=== PATIENT | female | born 1995 | race Caucasian/White ===

== ENCOUNTER 2020-01-22 15:25 | Emergency (ER) | payer SELFPAY ==
[2020-01-22] VITALS (7 sets, daily range): BP systolic 105–148; BP diastolic 65–94; PULSE 61–110; RESP 16–18; TEMP 36.4; O2SAT 96–98; BMI 36.6
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
--- NOTE | 2020-01-22 17:18 | CTR_ITS ---
PROCEDURE INFORMATION: Exam: CT Abdomen And Pelvis Without Contrast Exam date and time: 01/22/2020 5:53 PM Age: 24 years old Clinical indication: Abdominal pain; Additional info: Flank pain TECHNIQUE: Imaging protocol: Computed tomography of the abdomen and pelvis without contrast. Radiation optimization: All CT scans at this facility use at least one of these dose optimization techniques: automated exposure control; mA and/or kV adjustment per patient size (includes targeted exams where dose is matched to clinical indication); or iterative reconstruction. COMPARISON: No relevant prior studies available. RADIATION DOSE METRICS: Total DLP (mGy-cm): 1742.07 FINDINGS: Liver: Normal. No mass. Gallbladder and bile ducts: Normal. No calcified stones. No ductal dilation. Pancreas: Normal. No ductal dilation. Spleen: Normal. No splenomegaly. Adrenal glands: Normal. No mass. Kidneys and ureters: Normal. No hydronephrosis. Stomach and bowel: Unremarkable. No obstruction. No mucosal thickening. Appendix: The appendix is normal. Intraperitoneal space: Unremarkable. No free air. No significant fluid collection. Vasculature: Unremarkable. No abdominal aortic aneurysm. Lymph nodes: Unremarkable. No enlarged lymph nodes. Urinary bladder: Unremarkable as visualized. Reproductive: Unremarkable as visualized. Bones/joints: Unremarkable. No acute fracture. Soft tissues: Unremarkable. CT/CT kidney stone [id number] IMPRESSION: No acute findings. Radiation Dose CTDIVOL = (mGy): DLP = 1742.07 (mGy-cm)
[2020-01-22 17:24] LABS: Basophils # 0.1 10^3/uL (0.0-0.1); Eosinophils # 0.5 10^3/uL (0.0-0.8); Eosinophils % 4.3 %; Hematocrit 44.2 % (37.0-47.0); Hemoglobin 14.6 g/dL (11.5-15.3); Lymphocytes % 24.1 %; Mean Corpuscular Volume 90.8 fL (81-99); Mean Platelet Volume 10.1 fL (7.4-10.4); Monocytes # 0.7 10^3/uL (0.2-0.9); Monocytes % 5.3 %; Nucleated Red Blood Cells % 0 %; Platelet Count 296 10^3/cmm (130-400); Red Blood Count 4.87 10^6/uL (4.1-5.3); Red Cell Distribution Width 12.4 % (12.1-15.1); White Blood Count 12.3 10^3/uL (4.0-10.0)
[2020-01-22 17:33] LABS: HCG, Serum Qual Negative (Negative)
[2020-01-22] MEDS: ondansetron 2 mg/ML SDV 2 mL 4 MG IVP (17:34)
[2020-01-22] MEDS: sodium chloride 0.9% 1,000 ML 999 ML IV (17:34)
[2020-01-22] MEDS: morphine 4 mg/mL SDV 1 mL IVP (17:34)
[2020-01-22 17:43] LABS: Lipase 67 U/L (13-60)
[2020-01-22 18:49] LABS: Alanine Aminotransferase 43 U/L (0-33); Albumin Level 4.3 g/dL (3.5-5.2); Alkaline Phosphatase 65 IU/L (35-105); Blood Urea Nitrogen 12 mg/dL (6-20); Calcium 9.7 mg/dL (8.5-10.5); Carbon Dioxide 23 mmol/L (22-29); Chloride 104 mmol/L (98-107); Globulin 2.5 g/dL (1.3-4.6); Glomerular Filtration Rate 122.8 mL/min (90-130); Glucose 107 mg/dL (65-115); Osmolality Calculated 284 mOsm/kg (285-295); Sodium 137 mmol/L (136-145); Total Bilirubin 0.2 mg/dL (0.15-1.2); Total Protein 6.8 g/dL (6.6-8.7)
[2020-01-22 19:09] LABS: Anion Gap 14.2 (5-19); Aspartate Amino Transferase 45 U/L (0-32); Potassium 4.2 mmol/L (3.5-5.1)
[2020-01-22 19:41] LABS: Bilirubin Urine Neg (Negative); Blood Urine 3+ (Negative); Glucose Urine UA Norm (Normal); Ketones Urine Negative (Negative); Nitrate Urine Negative (Negative); Protein Urine Neg (Negative); Urine Appearance Cloudy (CLEAR); Urine Color Yellow (Yellow); pH Urine 5 (5-7)
[2020-01-22 19:42] LABS: Add Urine Microscopic? YES; Leukocyte Esterase Urine Trace (Negative); Urobilinogen Urine Norm (Negative)
[2020-01-22 19:56] LABS: Add Urine Culture? Yes; Bacteria Urine 3+ /hpf; RBC Urine TOO NUMEROUS TO CNT /hpf (0-2)
[2020-01-22] MEDS: phenazopyridine 100 mg Tablet 200 MG PO (20:48)
[2020-01-22] MEDS: cefTRIAXone 1,000 MG in sodium chloride 0.9% (plus) 50 ML 100 MG IV (20:48)
== END 2020-01-22 21:17 | disposition home or self-care (01) ==
PROVIDERS: Family Medicine; Emergency Provider Emergency Medicine; PCP Family Medicine
DX: N30.01 Acute cystitis with hematuria (principal); R74.8 Abnormal levels of other serum enzymes; F17.210 Nicotine dependence, cigarettes, uncomplicated
CPT/HCPCS: 12345; 74176; 80053; 81001; 83690; 84703; 85025; 87077; 87086; 87186; 96365; 96375; 96376; 99282; 99283; J0696; J2270; J2405; J7030

== ENCOUNTER 2021-02-25 15:53 | Emergency (ER) | payer SELFPAY ==
[2021-02-25 16:05] VITALS: BP 142/85; PULSE 89; RESP 16; TEMP 36.7; O2SAT 98
--- NOTE | 2021-02-25 16:17 | ED_ITS ---
HPI - Skin/Abscess/Foreign Bdy General: Chief complaint: Skin/Abscess/Foreign Body Stated complaint: NEW TATTOO, RED, SWOLLEN, IRRITATED/WORSE EVERYDAY Time Seen by Provider: 02/25/21 16:12 History of Present Illness: HPI narrative: Patient had rather extensive tattoo done to her left forearm approximately week ago. And now she is having pain and having some bumps that are appearing along the tattoo especially where there is some red ink. She had similar thanks and then by the same manga artist on the other arm had no problems previously. Patient has been applying petroleum jelly to keep tattoo moist MD complaint: rash and other (Pain to tattoo) Onset (ago): hour(s) Tetanus up to date: yes Location: LUE Severity: mild Severity scale (1-10): 2 Quality: burning Associated symptoms: Reports no associated symptoms; Deny chills, fever(s), nausea or vomiting Review of Systems Const: Denies: fever(s), chills or body aches Eyes: Denies: change in vision or blurry vision ENMT: Denies: throat pain or nasal congestion Card: Denies: chest pain or dyspnea on exertion Resp: Denies: dyspnea, productive cough or non-productive cough GI: Denies: abdominal pain, nausea or vomiting Musc: Denies: extremity pain Skin/Breast: Reports: other (Tenderness to the left forearm where tattoo was recently placed.); Denies: rash Neuro: Denies: headache(s) Psych: Denies: anxiety or depression Brad/Lymph: Denies: easy bruising PFSH ED PFSH: Medical History Dysthymic disorder Major depressive disorder, recurrent, moderate Opioid dependence, in remission Social History Smoking and tobacco status: current every day smoker cigarettes Smoking risk assessment/counseling performed?: Yes Tobacco counseling given: counseling >3 minutes Female Reproductive History: Date of last menstrual period: 11/04/18 Physical Exam Const: COMMON NORMALS: no acute distress GENERAL APPEARANCE: cooperative Extremity: COMMON NORMALS: normal to inspection Skin: OTHER: No swelling or erythema to the tattoo itself does have reddened areas which are maculopapular around some the areas of the ankle where it is red and darker colors. It is tender to the touch. No obvious infection. Course Vital Signs: Vital signs: Vital Signs Temperature 98.1 F 02/25/21 16:05 Pulse Rate 89 02/25/21 16:05 Respiratory Rate 16 02/25/21 16:05 Blood Pressure 142/85 02/25/21 16:05 Pulse Oximetry 98 02/25/21 16:05 Discharge Plan Discharge Patient Disposition: Home Clinical Impression: Allergic reaction to tattoo ink Condition: Stable Prescriptions: New doxycycline hyclate 100 mg capsule 100 mg PO BID 7 Days Qty: 14 RF: 0 Decadron 6 mg tablet 6 mg PO DAILY Qty: 7 RF: 0 No Action Tylenol Arthritis 650 mg Tablet Extended Release 1,300 mg PO PRN RF: 0 Pyridium 200 mg tablet 200 mg PO Q8H PRN (Reason: pain) Qty: 6 RF: 0 Discharge Orders: Discharge ED (Routine); Ordered 02/25/21 Ordered By: Miles Balderrama Referrals: Angel Molina MD [Primary Care Provider] - Discharge Diet: Usual diet Discharge Activity: Resume usual activity Activity Restrictions/Additional Instructions: Follow-up with medical provider as directed. Take medications as prescribed. Return to the ER or your medical provider if condition worsens. Please read and understand discharge instructions. If any questions ask please. Coding Level of Care Code ED Plasterer Apprentice for Von No
== END 2021-02-25 16:42 | disposition home or self-care (01) ==
PROVIDERS: Emergency Provider Nurse Practitioner Family; PCP Family Medicine
DX: L81.8 Other specified disorders of pigmentation (principal); T78.49XA Other allergy, initial encounter; X58.XXXA Exposure to other specified factors, initial encounter
CPT/HCPCS: 99281

== ENCOUNTER → 2022-02-11 12:28 | Outpatient (BNVA) | payer MEDICAID, SELFPAY | PROVIDERS: PCP Family Medicine; Visit Provider Registered Nurse Neonatal Intensive Care | DX: R50.9 Fever, unspecified (principal); N39.0 Urinary tract infection, site not specified; J06.9 Acute upper respiratory infection, unspecified | CPT/HCPCS: 87077; 87086; 87184; 87400 ==

== ENCOUNTER 2022-08-05 17:28 | Emergency (ER) | payer MEDICAID, SELFPAY ==
[2022-08-05 17:32] VITALS: BP 163/103; PULSE 80; RESP 16; TEMP 36.8; O2SAT 96
--- NOTE | 2022-08-05 18:22 | CTR_ITS ---
PROCEDURE INFORMATION: Exam: CT Head Without Contrast Exam date and time: 08/05/2022 7:37 PM Age: 27 years old Clinical indication: Pain; Headache not specified; Additional info: Acute headache, RT side, visual change RT eye TECHNIQUE: Imaging protocol: Computed tomography of the head without contrast. Radiation optimization: All CT scans at this facility use at least one of these dose optimization techniques: automated exposure control; mA and/or kV adjustment per patient size (includes targeted exams where dose is matched to clinical indication); or iterative reconstruction. REPORTING DATA: Count of CT and Cardiac NM exams in prior 12 months: This patient has received 0 known CTs and 0 known cardiac nuclear medicine studies in the 12 months prior to the current study. COMPARISON: CR XR facial bones <3V [id number] 11/09/2018 5:39 PM RADIATION DOSE METRICS: Total DLP (mGy-cm): 1025.18 FINDINGS: Brain: There is no evidence of infarct, kaufman-white matter differentiation is preserved. There is no hemorrhage or extra-axial collection. There is no mass. No evidence of subarachnoid hemorrhage. No evidence of cerebral edema. Cerebral ventricles: There is no hydrocephalus. Paranasal sinuses: Ethmoid sinus mucosal thickening. No air-fluid levels. Mastoid air cells: Visualized mastoid air cells are well aerated. Bones/joints: Unremarkable. No acute fracture. Soft tissues: Unremarkable. CT/CT head wo con* [id number] IMPRESSION: No intracranial lesion or injury
[2022-08-05 18:55] LABS: Basophils # 0.1 10^3/uL (0.0-0.1); Basophils % 1.2 %; Eosinophils # 0.3 10^3/uL (0.0-0.8); Eosinophils % 3.5 %; Hematocrit 41.5 % (37.0-47.0); Hemoglobin 14.1 g/dL (11.5-15.3); Lymphocytes # 3.3 10^3/uL (0.8-4.8); Lymphocytes % 34.8 %; Mean Corpuscular Hemoglobin 29.9 pg (28.0-34.0); Mean Corpuscular Volume 88.1 fl (81-99); Monocytes # 0.5 10^3/uL (0.2-0.9); Monocytes % 4.7 %; Neutrophils # 5.31 10^3/uL (1.8-7.7); Neutrophils % 55.6 %; Nucleated Red Blood Cells % 0 %; Platelet Count 277 10^3/cmm (130-400); Red Blood Count 4.71 10^6/uL (4.1-5.3); Red Cell Distribution Width 12.8 % (12.1-15.1); White Blood Count 9.5 10^3/uL (4.0-10.0)
[2022-08-05 19:01] LABS: Erythrocyte Sedimentation Rate 11 mm/hr (0-15)
[2022-08-05 19:08] LABS: HCG Qualitative Urine. Negative (Negative)
--- NOTE | 2022-08-05 19:09 | ED_ITS ---
HPI - Neck Pain/Injury General: Chief Complaint: Neck Pain/Injury Stated Complaint: neck pain Time Seen by Provider: 08/05/22 17:46 Source: patient Mode of arrival: ambulatory Limitations: no limitations History of Present Illness: Patient presents to the emergency department today accompanied by significant other for evaluation treatment of neck pain and headache. Patient reports that about a week ago she started having pain at the base of her skull radiating down her neck to between her shoulder blades. She denies any known trauma prior to onset of her discomfort but, states that couple weeks ago she did impact her head but, had no symptoms at that time. Patient reports pain primarily with forward flexion of the neck. She describes a right-sided headache now with worsening pressure behind her right eye. She also thinks her vision in her right eye is somewhat blurry. She admits to high anxiety and is very concerned about her symptoms though, indicates she has only taken Tylenol earlier this morning and her daily Kratom. She denies fevers. She denies vomiting or nausea. She denies any upper respiratory symptoms recently. Patient typically wears glasses daily and describes her her visual changes in her right eye as occasional floaters . Patient denies issues with hypertension in the past but, does note that she is increasingly anxious the last few days. Review of Systems General: Reports: 10 or more systems reviewed and unremarkable except in HPI and below PFSH ED PFSH: Medical History Dysthymic disorder Major depressive disorder, recurrent, moderate Opioid dependence, in remission Social History Smoking and tobacco status: current every day smoker cigarettes Smoking risk assessment/counseling performed?: Yes Tobacco counseling given: counseling >3 minutes Physical Exam Const: COMMON NORMALS: no acute distress, patient oriented x3 and alert HENMT: COMMON NORMALS: normocephalic, atraumatic, hearing grossly normal bilaterally, external ears normal, Normal external nose present and oropharynx normal HEAD & SCALP: normocephalic and atraumatic NOSE: Normal external nose present EXTERNAL EAR: Yes external ears normal Eye: COMMON NORMALS: Equal, round and reactive pupils present, EOMs intact bilaterally and conjunctivae normal CONJUNCTIVA: Yes conjunctivae normal PUPIL: Yes Equal, round and reactive pupils present OTHER: Visual acuity with glasses-right: 20/40, left: 20/40, both: 20/40 Neck/C-Spine: COMMON NORMALS: full ROM (Patient is able to flex forward but, complains of pulling in her neck) and no JVD Lymph: LYMPHATIC: no lymphadenopathy noted Resp: COMMON NORMALS: normal respiratory effort, No retractions and No use of accessory muscles Cardio: COMMON NORMALS: no JVD and regular rate RATE: regular rate : COMMON NORMALS: Yes no CVA tenderness BLADDER/KIDNEY EXAM: Yes no CVA tenderness Back/Pelvis: COMMON NORMALS: no CVA tenderness, thoracic and lumbar spine normal to inspection and thoraco-lumbar ROM normal Extremity: COMMON NORMALS: normal to inspection, full ROM and no pedal edema Neuro: COMMON NORMALS: patient oriented x3 SENSORIUM/ORIENTATION: Yes alert OTHER: Patient has no signs of any neurological deficit. Patient has full use of her upper extremities without tingling, numbness, or weakness. Skin: COMMON NORMALS: no rashes or lesions noted and turgor normal GENERAL SKIN EXAM: no rashes or lesions noted and turgor normal Course Vital Signs: Vital signs: Vital Signs Temperature 98.2 F 08/05/22 17:32 Pulse Rate 80 08/05/22 17:32 Respiratory Rate 16 08/05/22 17:32 Blood Pressure 163/103 08/05/22 17:32 Pulse Oximetry 96 08/05/22 17:32 Oxygen Delivery Me thod Room Air 08/05/22 17:32 MDM - Neck Pain/Injury Medical Decision Making Patient presented to the emergency department today for evaluation treatment of continued neck pain and development of right-sided headache. Patient also had complaints of some blurry vision but, had 20/40 vision on exam. Patient had no acute findings on physical examination concerning for neurological deficit. She also showed no findings concerning for a meningeal infection. Discussed with patient negative lab work-up and, negative imaging today. For that reason, we will treat for musculoskeletal concerns. 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 However, strict return precautions were given including change or loss of visual field, fever, worst headache of her life, or vomiting. Patient verbalized understanding and agreement to treatment plan. Differential Diagnosis Likely cervical radiculopathy, torticollis, cervical spondylosis and strain of neck muscle Lab Data 08/05/22 18:44 08/05/22 18:[address] 08/05/22 18:22 IMPRESSION: No intracranial lesion or injury Laboratory Results WBC 9.5 10^3/uL (4.0-10.0) 08/05/22 18:44 RBC 4.71 10^6/uL (4.1-5.3) 08/05/22 18:44 Hgb 14.1 g/dL (11.5-15.3) 08/05/22 18:44 Hct 41.5 % (37.0-47.0) 08/05/22 18:44 MCV 88.1 fl (81-99) 08/05/22 18:44 MCH 29.9 pg (28.0-34.0) 08/05/22 18:44 MCHC 34.0 g/dL (30.0-36.0) 08/05/22 18:44 RDW 12.8 % (12.1-15.1) 08/05/22 18:44 Plt Count 277 10^3/cmm (130-400) 08/05/22 18:44 MPV 10.0 fL (7.4-10.4) 08/05/22 18:44 Neut % (Auto) 55.6 % 08/05/22 18:44 Lymph % (Auto) 34.8 % 08/05/22 18:44 [place] % (Auto) 4.7 % 08/05/22 18:44 Eos % (Auto) 3.5 % 08/05/22 18:44 Baso % (Auto) 1.2 % 08/05/22 18:44 Neut # (Auto) 5.31 10^3/uL (1.8-7.7) 08/05/22 18:44 Lymph # (Auto) 3.3 10^3/uL (0.8-4.8) 08/05/22 18:44 [place] # (Auto) 0.5 10^3/uL (0.2-0.9) 08/05/22 18:44 Eos # (Auto) 0.3 10^3/uL (0.0-0.8) 08/05/22 18:44 Baso # (Auto) 0.1 10^3/uL (0.0-0.1) 08/05/22 18:44 Nucleated RBC % (auto) 0 % 08/05/22 18:44 Nucleated RBCs # 0.0 /100WBC 08/05/22 18:44 ESR 11 mm/hr (0-15) 08/05/22 18:44 Sodium 140 mmol/L (136-145) 08/05/22 18:44 Potassium 3.6 mmol/L (3.5-5.1) 08/05/22 18:44 Chloride 105 mmol/L (98-107) 08/05/22 18:44 Carbon Dioxide 25 mmol/L (22-29) 08/05/22 18:44 Anion Gap 13.6 (5-19) 08/05/22 18:44 BUN 9 mg/dL (6-20) 08/05/22 18:44 Creatinine 0.6 mg/dL (0.5-0.9) 08/05/22 18:44 GFR Calculation 119.9 mL/min (90-130) 08/05/22 18:44 Glucose 113 mg/dL (65-115) 08/05/22 18:44 Calculated Osmolality 289 mOsm/kg (285-295) 08/05/22 18:44 Calcium 8.9 mg/dL (8.5-10.5) 08/05/22 18:44 Total Bilirubin 0.2 mg/dL (0.15-1.2) 08/05/22 18:44 AST 19 U/L (0-32) 08/05/22 18:44 ALT 17 U/L (0-33) 08/05/22 18:44 Alkaline Phosphatase 57 U/L (35-105) 08/05/22 18:44 C-Reactive Protein 8.3 mg/L (0.0-4.9) H 08/05/22 18:44 Total Protein 7.0 g/dL (6.6-8.7) 08/05/22 18:44 Albumin 4.3 g/dL (3.5-5.2) 08/05/22 18:44 Globulin 2.7 g/dL (1.3-4.6) 08/05/22 18:44 TSH 1.83 uIU/mL (0.27-4.20) 08/05/22 18:44 HCG, Qual Negative (Negative) 08/05/22 18:58 Urine Color Yellow (Yellow) 08/05/22 18:58 Urine Appearance Clear (CLEAR) 08/05/22 18:58 Urine pH 5 (5-7) 08/05/22 18:58 Ur Specific [place] 1.030 (1.005-1.030) 08/05/22 18:58 Urine Protein Neg (Negative) 08/05/22 18:58 Urine Glucose (UA) Norm (Normal) 08/05/22 18:58 Urine Ketones Negative (Negative) 08/05/22 18:58 Urine Blood 3+ (Negative) H 08/05/22 18:58 Urine Nitrate Negative (Negative) 08/05/22 18:58 Urine Bilirubin Neg (Negative) 08/05/22 18:58 Urine Urobilinogen Norm mg/dL (Negative) 08/05/22 18:58 Ur Leukocyte Esterase Negative (Negative) 08/05/22 18:58 Urine RBC 5-10 /hpf (0-2) H 08/05/22 18:58 Urine WBC 0-4 /hpf (0-5) H 08/05/22 18:58 Ur Squamous Epith Cells 0-4 /hpf (0-5) H 08/05/22 18:58 Amorphous Sediment Not Reportable 08/05/22 18:58 Urine Bacteria Not Reportable 08/05/22 18:58 Urine Mucus 1+ /hpf 08/05/22 18:58 Discharge Plan Discharge Patient Disposition: Home Clinical Impression: Cervical strain, acute, Acute headache Condition: Stable Prescriptions: New tizanidine 4 mg capsule 4 mg PO Q8H PRN (Reason: muscle spasticity) Qty: 20 0RF naproxen 500 mg tablet 500 mg PO BID PRN (Reason: pain) Qty: 20 0RF No Action nitrofurantoin monohyd/m-cryst [Macrobid] 100 mg capsule 100 mg PO BID 5 Days Qty: 10 0RF Rx Instructions: must administer with a meal/food Tylenol Arthritis 650 mg Tablet Extended Release 1,300 mg PO PRN Discharge Orders: Discharge ED (Routine); Ordered 08/05/22 Ordered By: Alicia Link Referrals: Angel Molina MD [Primary Care Provider] - Discharge Diet: Usual diet Discharge Activity: Increase activity as tolerated Patient Instructions: Cervical Strain (ED), Acute Neck Pain (ED) Activity Restrictions/Additional Instructions: Labs and imaging today are both negative for any acute concerns. We found no signs of infection concerning for meningitis or, issues with masses, lesions, or abnormalities in the brain. We are going to try you on some medication to see if this helps alleviate your discomfort. I do think it would be a good idea to reach out to your electrical transmission engineer for an eye examination next week should you continue to have complaints of floaters . I provided you some medication to help with pain. The tizanidine prescribed to you can cause sedation and drowsiness we do not recommend working or driving while taking this medication. I would like you to take off work tomorrow and have provided you a note as I would like you to be able to take it easy and take your medications as pre scribed on time. Please also take it easy and take your medications on Monday. Watch for any tingling or numbness in your arms. Watch for any new onset of fever, vomiting, or development of the worst headache of your entire life. If any of these occur you need to be seen and reevaluated again. 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
[2022-08-05 19:19] LABS: Alanine Aminotransferase 17 U/L (0-33); Albumin Level 4.3 g/dL (3.5-5.2); Alkaline Phosphatase 57 U/L (35-105); Anion Gap 13.6 (5-19); Aspartate Amino Transferase 19 U/L (0-32); Blood Urea Nitrogen 9 mg/dL (6-20); C Reactive Protein 8.3 mg/L (0.0-4.9); Calcium 8.9 mg/dL (8.5-10.5); Carbon Dioxide 25 mmol/L (22-29); Chloride 105 mmol/L (98-107); Globulin 2.7 g/dL (1.3-4.6); Glomerular Filtration Rate 119.9 mL/min (90-130); Glucose 113 mg/dL (65-115); Osmolality Calculated 289 mOsm/kg (285-295); Potassium 3.6 mmol/L (3.5-5.1); Sodium 140 mmol/L (136-145); Thyroid Stimulating Hormone 1.83 uIU/mL (0.27-4.20); Total Bilirubin 0.2 mg/dL (0.15-1.2)
[2022-08-05 20:46] LABS: Add Urine Microscopic? YES; Bilirubin Urine Neg (Negative); Blood Urine 3+ (Negative); Glucose Urine UA Norm (Normal); Ketones Urine Negative (Negative); Leukocyte Esterase Urine Negative (Negative); Nitrate Urine Negative (Negative); Protein Urine Neg (Negative); Urine Appearance Clear (CLEAR); Urine Color Yellow (Yellow); Urobilinogen Urine Norm (Negative); pH Urine 5 (5-7)
[2022-08-05 20:53] LABS: Squamous Epithelial Cell Urine 0-4 /hpf (0-5); WBC Urine 0-4 /hpf (0-5)
[2022-08-05 20:54] LABS: Add Urine Culture? No; Mucus Urine 1+ /hpf
== END 2022-08-05 20:47 | disposition home or self-care (01) ==
PROVIDERS: Emergency Provider Physician Assistant; PCP Family Medicine
DX: S16.1XXA Strain of muscle, fascia and tendon at neck level, initial encounter (principal); R51.9 Headache, unspecified; F17.210 Nicotine dependence, cigarettes, uncomplicated; X58.XXXA Exposure to other specified factors, initial encounter
CPT/HCPCS: 70450; 80053; 81001; 81025; 84443; 85025; 85651; 86140; 99284

== ENCOUNTER 2023-04-21 10:53 | Emergency (ER) | payer SELFPAY ==
[2023-04-21 11:18] VITALS: PULSE 97; RESP 16; TEMP 36.8; O2SAT 92; BMI 33.3
--- NOTE | 2023-04-21 11:27 | ED_ITS ---
HPI - Female Genitourinary 2 General: Chief complaint: Urogenital-Female Stated complaint: right side abd pain, lower back pain Time Seen by Provider: 04/21/23 11:07 Source: patient Mode of arrival: ambulatory Limitations: no limitations History of Present Illness: 28-year-old female states she been havin g some right low back pain over the last 2 weeks states it has been sharp pain worse with movement and touch states she has had kidney infections in the past and concerned that she may have a kidney infection. States she has had dysuria she denies any fever denies any diarrhea. Associated symptoms: Deny abdominal pain, headache(s) or nausea Review of Systems 2 Const: Denies: fever(s) or chills ENMT: Denies: throat pain or dental pain Card: Denies: chest pain Resp: Denies: dyspnea GI: Denies: abdominal pain, nausea, vomiting or diarrhea : Reports: flank pain and dysuria Musc: Reports: back pain; Denies: neck pain Skin/Breast: Denies: rash Neuro: Denies: headache(s) PFSH ED 2 PFSH: Medical History Opioid dependence, in remission Major depressive disorder, recurrent, moderate Dysthymic disorder Social History Smoking and tobacco/nicotine status: current every day tobacco/nicotine user cigarettes Physical Exam 2 Const: COMMON NORMALS: no acute distress, patient oriented x3 and healthy appearing HENMT: COMMON NORMALS: normocephalic and atraumatic HEAD & SCALP: n ormocephalic and atraumatic Eye: COMMON NORMALS: conjunctivae normal CONJUNCTIVA: Yes conjunctivae normal Neck/C-Spine: COMMON NORMALS: full ROM and supple Chest: COMMONS NORMALS: normal inspection of the chest Resp: COMMON NORMALS: normal respiratory effort Cardio: COMMON NORMALS: regular rate, regular rhythm and No murmurs present (Cardio) RATE: regular rate RHYTHM: regular rhythm GI: COMMON NORMALS: Normal to inspection, nondistended, normoactive bowel sounds present, Soft to palpation, non-tender and no masses PALPATION: Yes Soft to palpation Back/Pelvis: OTHER: right low back tenderness Extremity: COMMON NORMALS: normal to inspection and full ROM Neuro: COMMON NORMALS: patient oriented x3, moves all extremities and no focal motor deficits Psych: COMMON NORMALS: mental status grossly normal, Normal thought process present and cooperative THOUGHT PROCESS: Normal thought process present Skin: COMMON NORMALS: no rashes or lesions noted and no wounds GENERAL SKIN EXAM: no rashes or lesions noted Course 2 Vital Signs: Vital signs: Vital Signs Temperature 98.2 F 04/21/23 11:18 Pulse Rate 97 04/21/23 11:18 Respiratory Rate 16 04/21/23 11:18 Pulse Oximetry 92 04/21/23 11:18 Oxygen Delivery Me thod Room Air 04/21/23 11:18 MDM - Female Medical Decision Making Patient presents here with back pains likely muscular in nature she has no signs of kidney stone or kidney infection she is stable for discharge she is follow-up with PCP and return if worsening. Medical Records I reviewed the patient's medical records. Lab Data I reviewed the patient's lab results. 04/21/23 11:50 04/21/23 11:50 Laboratory Results WBC 9.04 10^3/uL (3.29-11.43) 04/21/23 11:50 RBC 5.14 10^6/uL (3.85-5.65) 04/21/23 11:50 Hgb 15.00 g/dL (11.27-16.99) 04/21/23 11:50 Hct 44.6 % (36-47) 04/21/23 11:50 MCV 86.8 fl (85-98) 04/21/23 11:50 MCH 29.2 pg (27-33) 04/21/23 11:50 MCHC 33.6 g/dL (30-55) 04/21/23 11:50 RDW 12.4 % (12.1-15.1) 04/21/23 11:50 Plt Count 321 10^3/cmm (157-399) 04/21/23 11:50 MPV 9.6 fL (7.4-10.4) 04/21/23 11:50 Neut % (Auto) 58.9 % 04/21/23 11:50 Lymph % (Auto) 32.1 % 04/21/23 11:50 [place] % (Auto) 4.3 % 04/21/23 11:50 Eos % (Auto) 2.8 % 04/21/23 11:50 Baso % (Auto) 1.5 % 04/21/23 11:50 Neut # (Auto) 5.32 10^3/uL (1.8-7.7) 04/21/23 11:50 Lymph # (Auto) 2.9 10^3/uL (0.8-4.8) 04/21/23 11:50 [place] # (Auto) 0.4 10^3/uL (0.2-0.9) 04/21/23 11:50 Eos # (Auto) 0.3 10^3/uL (0.0-0.8) 04/21/23 11:50 Baso # (Auto) 0.1 10^3/uL (0.0-0.1) 04/21/23 11:50 Nucleated RBC % (auto) 0 % 04/21/23 11:50 Nucleated RBCs # 0.0 /100WBC 04/21/23 11:50 Sodium 140 mmol/L (136-145) 04/21/23 11:50 Potassium 4.2 mmol/L (3.5-5.1) 04/21/23 11:50 Chloride 107 mmol/L (98-107) 04/21/23 11:50 Carbon Dioxide 22 mmol/L (22-29) 04/21/23 11:50 Anion Gap 15.2 (5-19) 04/21/23 11:50 BUN 14 mg/dL (6-20) 04/21/23 11:50 Creatinine 0.6 mg/dL (0.5-0.9) 04/21/23 11:50 GFR Calculation 119.0 mL/min (90-130) 04/21/23 11:50 Glucose 88 mg/dL (65-115) 04/21/23 11:50 Calculated Osmolality 290 mOsm/kg (285-295) 04/21/23 11:50 Calcium 9.0 mg/dL (8.5-10.5) 04/21/23 11:50 Total Bilirubin 0.3 mg/dL (0.15-1.2) 04/21/23 11:50 AST 17 U/L (0-32) 04/21/23 11:50 ALT 17 U/L (0-33) 04/21/23 11:50 Alkaline Phosphatase 63 U/L (35-105) 04/21/23 11:50 Total Protein 7.7 g/dL (6.6-8.7) 04/21/23 11:50 Albumin 4.3 g/dL (3.5-5.2) 04/21/23 11:50 Globulin 3.4 g/dL (1.3-4.6) 04/21/23 11:50 Lipase 49 U/L (13-60) 04/21/23 11:50 HCG, Qual Negative (Negative) 04/21/23 11:50 Urine Color Yellow (Yellow) 04/21/23 11:45 Urine Appearance Clear (CLEAR) 04/21/23 11:45 Urine pH 5 (5-7) 04/21/23 11:45 Ur Specific [place] 1.025 (1.005-1.030) 04/21/23 11:45 Urine Protein Trace (Negative) 04/21/23 11:45 Urine Glucose (UA) Norm (Normal) 04/21/23 11:45 Urine Ketones Negative (Negative) 04/21/23 11:45 Urine Blood Neg (Negative) 04/21/23 11:45 Urine Nitrate Negative (Negative) 04/21/23 11:45 Urine Bilirubin Neg (Negative) 04/21/23 11:45 Urine Urobilinogen Norm mg/dL (Negative) 04/21/23 11:45 Ur Leukocyte Esterase Negative (Negative) 04/21/23 11:45 Urine RBC None /hpf (0-2) 04/21/23 11:45 Urine WBC 0-4 /hpf (0-5) H 04/21/23 11:45 Ur Squamous Epith Cells 0-4 /hpf (0-5) H 04/21/23 11:45 Amorphous Sediment Not Reportable 04/21/23 11:45 Urine Bacteria Trace /hpf (NONE) 04/21/23 11:45 No radiology studies performed this visit Discharge Plan Discharge Patient Disposition: Home Clinical Impression: Low back pain Qualifiers: Chronicity: acute Back pain laterality: right Sciatica presence: without sciatica Qualified Code(s): M54.50 - Low back pain, unspecified Condition: Stable Prescriptions: New methocarbamol 750 mg tablet 750 mg PO Q6H PRN (Reason: spasms) Qty: 20 0RF Naprosyn 500 mg tablet 500 mg PO BID PRN (Reason: pain) Qty: 20 0RF No Action nitrofurantoin monohyd/m-cryst [Macrobid] 100 mg capsule 100 mg PO BID 5 Days Qty: 10 0RF Rx Instructions: must administer with a meal/food Tylenol Arthritis 650 mg Tablet Extended Release 1,300 mg PO PRN tizanidine 4 mg capsule 4 mg PO Q8H PRN (Reason: muscle spasticity) Qty: 20 0RF naproxen 500 mg tablet 500 mg PO BID PRN (Reason: pain) Qty: 20 0RF Discharge Orders: Discharge ED (Routine); Ordered 04/21/23 Ordered By: Chelle Teague Referrals: Angel Molina MD [Primary Care Provider] - 1-3 days Discharge Diet: Advance as tolerated Discharge Activity: Resume usual activity Patient Instructions: Back Pain (ED) 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
[2023-04-21] MEDS: sodium chloride 0.9% 1,000 ML 999 ML IV (11:59)
[2023-04-21] MEDS: ketorolac 30 mg/mL INJ 15 MG IVP (12:00)
[2023-04-21] MEDS: ondansetron 2 mg/ML SDV 2 mL 4 MG IVP (12:00)
[2023-04-21 12:10] LABS: Basophils # 0.1 10^3/uL (0.0-0.1); Basophils % 1.5 %; Eosinophils # 0.3 10^3/uL (0.0-0.8); Eosinophils % 2.8 %; Hematocrit 44.6 % (36-47); Lymphocytes # 2.9 10^3/uL (0.8-4.8); Lymphocytes % 32.1 %; Mean Corpuscular HGB Conc 33.6 g/dL (30-55); Mean Corpuscular Hemoglobin 29.2 pg (27-33); Mean Corpuscular Volume 86.8 fl (85-98); Mean Platelet Volume 9.6 fL (7.4-10.4); Monocytes # 0.4 10^3/uL (0.2-0.9); Monocytes % 4.3 %; Neutrophils # 5.32 10^3/uL (1.8-7.7); Neutrophils % 58.9 %; Nucleated Red Blood Cells % 0 %; Platelet Count 321 10^3/cmm (157-399); Red Blood Count 5.14 10^6/uL (3.85-5.65); Red Cell Distribution Width 12.4 % (12.1-15.1); White Blood Count 9.04 10^3/uL (3.29-11.43)
[2023-04-21 12:17] LABS: HCG, Serum Qual Negative (Negative)
[2023-04-21 12:21] LABS: Alanine Aminotransferase 17 U/L (0-33); Albumin Level 4.3 g/dL (3.5-5.2); Alkaline Phosphatase 63 U/L (35-105); Anion Gap 15.2 (5-19); Aspartate Amino Transferase 17 U/L (0-32); Blood Urea Nitrogen 14 mg/dL (6-20); Carbon Dioxide 22 mmol/L (22-29); Chloride 107 mmol/L (98-107); Globulin 3.4 g/dL (1.3-4.6); Glucose 88 mg/dL (65-115); Lipase 49 U/L (13-60); Osmolality Calculated 290 mOsm/kg (285-295); Potassium 4.2 mmol/L (3.5-5.1); Sodium 140 mmol/L (136-145); Total Bilirubin 0.3 mg/dL (0.15-1.2); Total Protein 7.7 g/dL (6.6-8.7)
[2023-04-21 12:26] LABS: Add Urine Microscopic? YES; Bilirubin Urine Neg (Negative); Blood Urine Neg (Negative); Glucose Urine UA Norm (Normal); Ketones Urine Negative (Negative); Leukocyte Esterase Urine Negative (Negative); Nitrate Urine Negative (Negative); Protein Urine Trace (Negative); Specific Gravity, Urine 1.025 (1.005-1.030); Urine Appearance Clear (CLEAR); Urine Color Yellow (Yellow); Urobilinogen Urine Norm (Negative); pH Urine 5 (5-7)
[2023-04-21 12:27] LABS: Add Urine Culture? No; Bacteria Urine TRACE /hpf; Squamous Epithelial Cell Urine 0-4 /hpf (0-5); WBC Urine 0-4 /hpf (0-5)
[2023-04-21 12:50] VITALS: BP 165/107; PULSE 90; RESP 16; O2SAT 93
[2023-04-21 13:34] VITALS: BP 165/107; PULSE 90; RESP 16; TEMP 36.8; O2SAT 93
== END 2023-04-21 13:35 | disposition home or self-care (01) ==
PROVIDERS: Emergency Provider Emergency Medicine; PCP Family Medicine
DX: M54.50 Low back pain, unspecified (principal); F17.210 Nicotine dependence, cigarettes, uncomplicated
CPT/HCPCS: 80053; 81001; 83690; 84703; 85025; 96374; 96376; 99284; J1885; J2405; J7030

== ENCOUNTER 2024-01-13 04:13 | Emergency (ER) | payer SELFPAY ==
[2024-01-13 04:21] VITALS: BP 116/96; PULSE 84; RESP 17; TEMP 36.6; O2SAT 96; BMI 33.3
[2024-01-13 04:25] VITALS: BP 116/96; PULSE 84; RESP 16; O2SAT 96
--- NOTE | 2024-01-13 04:29 | W.ED.EAR ---
HPI - Ear Problem General: Chief complaint: Ear Stated complaint: woke with intense ear pain Right ear Time Seen by Provider: 01/13/24 04:20 History of Present Illness: Patient presents to the ER after waking with right ear pain is intense. Patient's had multiple problems with the right ear from trauma before. She had a ruptured eardrum. She said this pain is in her ear the right side of her head encounter and down her angle of her jaw. Her left side is just fine. Patient has been congested last several days. Patient denies any fever or chills. Related Data Home Medications Medication Instructions Recorded Confirmed acetaminophen 650 mg 1,300 mg PO PRN 01/22/20 02/11/22 tablet,extended release Previous Rx's Medication Instructions Recorded nitrofurantoin 100 mg PO BID 5 days #10 caps 02/14/22 monohydrate/macrocrystals 100 mg capsule (Macrobid) naproxen 500 mg tablet 500 mg PO BID PRN pain #20 tabs 08/05/22 tizanidine 4 mg capsule 4 mg PO Q8H PRN muscle spasticity 08/05/22 #20 caps methocarbamol 750 mg tablet 750 mg PO Q6H PRN spasms #20 tabs 04/21/23 naproxen 500 mg tablet (Naprosyn) 500 mg PO BID PRN pain #20 tabs 04/21/23 Allergies Allergy/AdvReac Type Severity Reaction Status Date / Time No Known Allergies Allergy Verified 02/11/22 12:23 Review of Systems General: Reports: 10 or more systems reviewed and unremarkable except in HPI and below PFSH ED PFSH: Medical History Opioid dependence, in remission Major depressive disorder, recurrent, moderate Dysthymic disorder Social History Smoking and tobacco/nicotine status: current every day tobacco/nicotine user cigarettes Female Reproductive History: Date of last menstrual period: 01/06/24 Physical Exam Const: COMMON NORMALS: no acute distress, average body habitus, patient oriented x3, no limitations, healthy appearing, alert and well nourished HENMT: COMMON NORMALS: normocephalic, atraumatic, external ears normal and moist oral mucous membranes; TM's not normal bilaterally (Right tympanic membrane retracted nonerythematous clear) HEAD & SCALP: normocephalic and atraumatic EXTERNAL EAR: Yes external ears normal TYMPANIC MEMBRANE: TM(s) not normal bilaterally (Right tympanic membrane retracted nonerythematous clear) Neck/C-Spine: COMMON NORMALS: full ROM, no lymphadenopathy, supple, no meningeal signs, no JVD and Thyroid normal THYROID: Thyroid normal OTHER: Mild tenderness to palpation down eustachian tube area on right side Chest: COMMONS NORMALS: normal inspection of the chest and normal palpation of entire chest wall Resp: COMMON NORMALS: normal respiratory effort, No retractions, No use of accessory muscles and clear to auscultation bilaterally AUSCULTATION: clear to auscultation bilaterally Cardio: COMMON NORMALS: no JVD, regular rate, regular rhythm, S1 normal heart sound present, S2 normal heart sound present, No gallops present (Cardio), No clicks present (Cardio), No murmurs present (Cardio) and No rub (Cardio) RATE: regular rate RHYTHM: regular rhythm HEART SOUNDS: S1 normal heart sound present and S2 normal heart sound present Neuro: COMMON NORMALS: patient oriented x3 SENSORIUM/ORIENTATION: Yes alert MENINGEAL SIGNS: Yes no meningeal signs Course Vital Signs: Vital signs: Vital Signs Temperature 97.9 F 01/13/24 04:21 Pulse Rate 84 01/13/24 04:21 Respiratory Rate 17 01/13/24 04:21 Blood Pressure 116/96 01/13/24 04:21 Pulse Oximetry 96 01/13/24 04:21 Oxygen Delivery Me thod Room Air 01/13/24 04:21 MDM - Ear Medical Decision Making Patient is right eustachian tube was retracted no gross amount of fluid erythema noted. Left side was totally normal. Patient has eustachian tube dysfunction. We will try a course of steroids. Medical Records I reviewed the patient's medical records. Lab Data I reviewed the patient's lab results. No radiology studies performed this visit Discharge Plan Discharge Patient Disposition: Home Clinical Impression: Acute dysfunction of eustachian tube Condition: Stable Prescriptions: No Action nitrofurantoin monohyd/m-cryst [Macrobid] 100 mg capsule 100 mg PO BID 5 Days Qty: 10 0RF Rx Instructions: must administer with a meal/food Tylenol Arthritis 650 mg Tablet Extended Release 1,300 mg PO PRN tizanidine 4 mg capsule 4 mg PO Q8H PRN (Reason: muscle spasticity) Qty: 20 0RF naproxen 500 mg tablet 500 mg PO BID PRN (Reason: pain) Qty: 20 0RF methocarbamol 750 mg tablet 750 mg PO Q6H PRN (Reason: spasms) Qty: 20 0RF Naprosyn 500 mg tablet 500 mg PO BID PRN (Reason: pain) Qty: 20 0RF Discharge Orders: Discharge ED (Routine); Ordered 01/13/24 Ordered By: Javier Worthington Referrals: Angel Molina MD [Primary Care Provider] - 1 week Activity Restrictions/Additional Instructions: Your eustachian tube which equalizes pressure between the back of the mouth and the ear has dysfunction and is not allowing the pressure to equalize and therefore your eardrum is retracted and causing pain. He had been given a shot of long-acting steroid which may help with the inflammation and swelling and allow her eardrum to function properly. If there is no change in the next 3 to 5 days please follow-up with your family practice physician as you may benefit from a referral to ear nose and throat doctor. 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
[2024-01-13] MEDS: methylPREDNISolone (DEPO) 80 MG/ML INJ 1 mL IM (04:40)
[2024-01-13 04:51] VITALS: BP 143/95; PULSE 77; RESP 16; O2SAT 95
== END 2024-01-13 04:52 | disposition home or self-care (01) ==
PROVIDERS: Emergency Provider Emergency Medicine; PCP Family Medicine
DX: H69.81 Other specified disorders of Eustachian tube, right ear (principal); F17.210 Nicotine dependence, cigarettes, uncomplicated
CPT/HCPCS: 96372; 99284; J1010